=== PATIENT | male | born 1985 | race Caucasian/White ===

== ENCOUNTER 2021-08-09 22:48 | Emergency (ER) | payer BC, SELFPAY ==
[2021-08-09 22:54] VITALS: BP 141/100; PULSE 89; RESP 19; TEMP 36.6; O2SAT 98; BMI 29.0
--- NOTE | 2021-08-09 23:03 | HMH.EDMCLR ---
ED Disposition Clinical Impression: Medical clearance for incarceration Disposition: Home, Self-Care Condition on Discharge: Good Instructions: DI for Alcohol Use Disorder Additional Instructions: see pcp for follow up Referrals: Nik Trinidad [Primary Care Provider] - - Critical Care Critical Care Time: No Attestation: On 08/09/21, the high probability of a clinically significant, sudden or life threatening deterioration of the following system(s) required my full and direct attention, intervention and personal management. The time I documented below is in addition to time spent performing reported procedures but includes the following listed in this critical care notation. Medical Decision Making - Medical Records Medical records reviewed: Yes: I reviewed the patient's medical records. - Malcolm Inquiry Pt receiving controlled substance: No Vital Signs: 08/09/21 22:54 Temperature 97.8 F Temperature Source Oral Pulse Rate [Right Brachial] 89 Respiratory Rate 19 Blood Pressure [Right Arm] 141/100 H Blood Pressure Mean [Right Arm] 113 Blood Pressure Source [Right Arm] Automatic Cuff Blood Pressure Position [Right Arm] Sitting 02 Sat by Pulse Oximetry 98 Oxygen Delivery Method Room Air Medical Decision Narrative: stable exam Medical Clearance HPI - General Chief complaint: Medical Clearance Stated complaint: medical clearance Time Seen by Provider: 08/09/21 23:03 Mode of Arrival: Family Vehicle Source of Information: Patient, Medical Record Limitations: No Limitations Description of Symptoms (Recalled from ER Triage Doc. by RN): pt presented for medical clearance for dui. Patient has no complaints. Refuses to identify any ongoing issues. - History of Present Illness HPI Narrative: no specific c/o MD complaint: medical clearance requested Onset (ago): hour(s) Place: street Traumatic Symptoms: denies traumatic injury Associated Symptoms: denies other symptoms Treatments Prior to Arrival: none [facility] History - Hepatitis A Screen Attestation statement:: This patient has been screened for Hepatitis A risk factors. I have reviewed the patient's past medical history: Yes ROS Obtained: Yes All systems reviewed & no additional complaints - Constitutional Constitutional: Denies fever(s) - Eyes Eyes: Denies change in vision - ENT Ears, Nose, Mouth, and Throat: Denies sore throat - Cardiovascular Cardiovascular: Denies chest pain - Respiratory Respiratory: Denies shortness of breath - Gastrointestinal Gastrointestingal: Denies: abdominal pain - Genitourinary Male Genitourinary: Denies hematuria - Musculoskeletal Musculoskeletal: Denies joint pain - Integumentary/Breasts Skin/Breast: Denies rash - Neurologic Neurologic: Denies focal weakness Physical Exam - General General appearance: alert - Head Head exam: normocephalic - Eye Eye exam: Present: PERRL, EOMI - ENT ENT exam: Present: mucous membranes moist - Neck Neck exam: Present: trachea midline - Respiratory Respiratory exam: Absent: respiratory distress - Cardiovascular Cardiovascular exam: Present: regular rate - Abdominal Exam Abdominal exam: Present: soft - Extremities Exam Extremities exam: Present: full ROM - Neurological Exam Neurological exam: Present: alert, CN II-XII intact - Psychiatric Psychiatric exam: Present: normal affect - Skin Skin exam: Absent: rash
[2021-08-09 23:06] VITALS: BP 139/95; PULSE 88; RESP 18; TEMP 36.8; O2SAT 98
== END 2021-08-09 23:12 | disposition home or self-care (01) ==
PROVIDERS: Emergency Provider Emergency Medicine; PCP Family Medicine
DX: F10.929 Alcohol use, unspecified with intoxication, unspecified (principal)
CPT/HCPCS: 99282

== ENCOUNTER 2023-01-12 15:16 | Emergency (ER) | payer BC, SELFPAY ==
[2023-01-12 15:18] VITALS: BP 160/97; PULSE 86; RESP 18; TEMP 37.3; O2SAT 95; BMI 26.5
--- NOTE | 2023-01-12 15:44 | EXP.UTC ---
Discharge Plan Disposition Patient Disposition: Home, Self-Care Condition: Good Prescriptions Prescriptions: New benzonatate [benzonatate] 100 mg capsule 100 mg PO TIDP PRN (Reason: Cough) Qty: 30 0RF methylprednisolone 4 mg Tablets,Dose Pack 4 mg PO DIRECTED Qty: 21 0RF amoxicillin-pot clavulanate 875-125 mg Tablet 1 tab PO Q12H Qty: 20 0RF Referrals Follow up/Referrals: Provider,Referral, MD [Primary Care Provider] - See instructions Activity Restrictions/Add. Instructions Additional Instructions/Restrictions: Drink plenty of fluids. Take tylenol or ibuprofen for pain or fever. Take the medications as directed. Follow up with your regular doctor. GO TO THE ER FOR ANY WORSENING SYMPTOMS Clinical Impressions Clinical Impression: Bronchitis, Sinusitis, Acute viral syndrome Stand Alone Forms Stand Alone Forms: Work/School Release Instructions Patient Instructions: DI for Sinusitis, DI for Acute Bronchitis Discharge ED Provider: Dionicio Moore [facility] General Stated complaint: cough,chest pain from coughing Time Seen by Provider: 01/12/23 15:43 History of Present Illness Provider Complaint: He states that for the past 4 days he has had chest congestion, sinus congestion, fever, and malaise. Related Data Previous Rx's Medication Instructions Recorded amoxicillin 875 mg-potassium 1 tab PO Q12H #20 tabs 01/12/23 clavulanate 125 mg tablet benzonatate 100 mg capsule 100 mg PO TIDP PRN Cough #30 caps 01/12/23 methylprednisolone 4 mg tablets in 4 mg PO DIRECTED #21 tabs 01/12/23 a dose pack Allergies Allergy/AdvReac Type Severity Reaction Status Date / Time azithromycin Allergy Verified 01/12/23 15:46 codeine Allergy Verified 01/12/23 15:46 [facility] Disclaimer: The information contained in this section may have been updated after the patient was seen, as this information can be updated by other users. Social History Smoking Status: Never smoker alcohol intake: never current occupational status: employed Travel in the last 8 weeks: None ROS Obtained: Yes All systems reviewed & no additional complaints except as documented Constitutional Constitutional: Reports poor appetite Eyes Eyes: Reports system reviewed and no additional complaints, except as documented ENT Ears, Nose, Mouth, and Throat: Reports as per HPI Cardiovascular Cardiovascular: Reports system reviewed and no additional complaints, except as documented and Denies chest pain Respiratory Respiratory: Denies shortness of breath, Reports chest congestion, Reports cough, Denies stridor and Denies wheezing Gastrointestinal Gastrointestingal: Reports system reviewed and no additional complaints, except as documented; Denies abdominal pain, diarrhea or vomiting Musculoskeletal Musculoskeletal: Reports system reviewed and no additional complaints, except as documented and Denies arthralgias Integumentary/Breasts Skin/Breast: Reports system reviewed and no additional complaints, except as documented and Denies rash Neurologic Neurologic: Denies paresthesias Allergic/Immunologic Allergic/Immunologic: Denies wheezing Physical Exam General General appearance: alert and in no apparent distress Eye Eye exam: Present normal appearance, PERRL and EOMI ENT ENT exam: Present mucous membranes moist and normal external ear exam Expanded ENT Exam External ear exam: Present normal external inspection TM/Canal exam: Bilateral TM: erythema and bulging Nose exam: Absent sinus tenderness Nasal speculum exam: Bilateral: normal Mouth exam: Present normal external inspection; Absent drooling Teeth exam: Present normal inspection Throat exam: Present tonsillar erythema and tonsillomegaly Neck Neck exam: Present normal inspection, full ROM and trachea midline; Absent tenderness, lymphadenopathy or thyromegaly Chest Chest inspection: Present normal inspection and symmetric chest wall rise; Absent tendern
[2023-01-12 16:31] LABS: UTC Influenza A Antigen Negative (Negative); UTC Influenza B Antigen Negative (Negative)
[2023-01-12 16:49] VITALS: BP 160/97; PULSE 86; RESP 18; TEMP 37.3; O2SAT 95
== END 2023-01-12 16:49 | disposition home or self-care (01) ==
PROVIDERS: Emergency Provider Nurse Practitioner Family
DX: J20.9 Acute bronchitis, unspecified (principal); J01.90 Acute sinusitis, unspecified; R50.9 Fever, unspecified; R53.81 Other malaise
CPT/HCPCS: 87804; 99204; 99212; G0463